=== PATIENT | male | born 1975 | race Caucasian/White ===

== ENCOUNTER 2018-12-29 23:25 | Emergency (ER) | payer MEDICAID, SELFPAY ==
[2018-12-29 23:25] VITALS: BP 152/101; PULSE 90; RESP 16; TEMP 37; O2SAT 97; BMI 23.7
--- NOTE | 2018-12-30 00:37 | ED.DCSUM_ITS ---
- ER Visit Summary Date of Service: 12/30/18 Chief Complaint: I am drunk History of Present Illness: The patient is a 43 M who presents with acute alcohol intoxication. Family member with him states that they talk to [facility] this morning about 8 AM and then again later in the day. They were advised to bring him to the emergency department for hospitalization for detox. The patient is currently intoxicated. His last drink was about 10 minutes before presentation here to the emergency department. He did go through alcohol detox in [place] in August. He reports nausea vomiting headache and neck pain for about a week. No fevers. No chest pain or shortness of breath. Physical Examination: Blood pressure 152/101 vitals of the normal Moist mucous membranes Heart regular rate and rhythm Lungs are clear Abdomen soft Alert No tremor Patient does not appear visibly anxious or agitated Test Results: Not indicated Emergency Department Course and Treatment: CIWAr score is 6. Patient does not appear to be in active withdrawal and does not meet criteria for medical admission. Therefore he was advised to follow-up as an outpatient or to return for new or worsening symptoms. Patient was discharged. Treatment Plan: [] Disposition: Discharge Impression: Alcohol dependence Acute alcohol intoxication This note was generated with [employer] dictation software. It may contain incorrect words, spelling, and punctuation that were not noted in review of the chart prior to signing
--- NOTE | 2018-12-30 00:37 | ED.DEP ---
ED Disposition - Plan for ED Patient: Instructions: ED Alcohol Abuse
[2018-12-30 00:52] VITALS: PULSE 86; RESP 18; O2SAT 96
== END 2018-12-30 00:53 | disposition home or self-care (01) ==
LOC: ED 12-30 00:47
PROVIDERS: Emergency Provider Emergency Medicine
DX: F10.229 Alcohol dependence with intoxication, unspecified (principal); Y90.9 Presence of alcohol in blood, level not specified; Z72.0 Tobacco use
CPT/HCPCS: 99282